=== PATIENT | male | born 1945 | race Caucasian/White ===

== ENCOUNTER 2019-10-27 07:23 | Emergency (ER) | payer MEDICARE, OTHER ==
--- NOTE | 2019-10-27 07:45 | Emergency Department Record ---
History of Present Illness - General Chief complaint: Male Urogenital Problem Stated complaint: TROUBLE URINATING Time Seen by Provider: 10/27/19 07:36 Source: Patient Mode of Arrival: Ambulatory Limitations: No limitations - History of Present Illness Initial comments: The patient is here due to a one week hx of mild dysuria and urinary urgency and frequency. The patient denies any AP, back pain, fever, blood in the urine, vomiting, diarrhea, or any new medicines. He has had similar issues in the past with prostate problems and is on Proscar. MD Complaint: Dysuria Onset/Timin -: Week(s) Improves with: None Worsens with: None - Related Data Home Medications Medication Instructions Recorded Confirmed Last Taken Finasteride [Proscar] 5 mg PO DAILY 10/27/19 10/27/19 Unknown Previous Rx's Medication Instructions Recorded Ciprofloxacin HCl [Cipro] 1 tab PO Q12H #14 tab 10/27/19 Allergies Allergy/AdvReac Type Severity Reaction Status Date / Time bactrim AdvReac Mild VOMITING Uncoded 10/27/19 07:36 Travel/Exposure Screening - Travel/Exposure Within Last 30 Days Have you traveled within the last 30 days?: No - Additonal Travel/Exposure Details Have you been exposed to anyone with a communicable illness?: No Review of Systems Constitutional: Denies: Chills, Fever Past Medical History - SOCIAL HISTORY Smoking Status: Former smoker Alcohol Use: None Drug Use: None - RESPIRATORY Hx Respiratory Disorders: No - CARDIOVASCULAR Hx Cardio Disorders: Yes Hx Hypertension: Yes - NEURO Hx Neuro Disorders: No - GI Hx GI Disorders: No - Hx Genitourinary Disorders: Yes Hx Prostate Problems: Yes - ENDOCRINE Hx Endocrine Disorders: Yes Hx Diabetes: Yes - MUSCULOSKELETAL Hx Musculoskeletal Disorders: No - PSYCH Hx Psych Problems: No - HEMATOLOGY/ONCOLOGY Hx Hematology/Oncology Disorders: No Family Medical History Any Significant Family History?: No Physical Exam - General General Appearance: Alert, Oriented x3, Cooperative, No acute distress - Head Head exam: Atraumatic, Normocephalic - Eye Eye exam: Normal appearance - Neck Neck exam: Normal inspection, Full ROM. negative: Tenderness - Respiratory Respiratory exam: Normal lung sounds bilaterally. negative: Respiratory distress - Cardiovascular Cardiovascular Exam: Regular rate, Normal rhythm, Normal heart sounds - GI/Abdominal GI/Abdominal exam: Soft, Normal bowel sounds. negative: Tenderness - Extremities Extremities exam: Normal inspection, Full ROM, Normal capillary refill. negative: Tenderness Course Vital Signs 10/27/19 07:32 Temperature 98.4 F Pulse Rate 73 Respiratory 20 Rate Blood Pressure 184/110 Pulse Ox 94 L - Reevaluation(s) Reevaluation #1: The patient is doing very well at this time. He is up walking with no pain or discomfort and his UA was neg. The patient's post void residual was <100 cc's of urine so I do not feel he is retaining urine. He is instructed to see his Urologist this week and to return to the ER for any worsening issues. 10/27/19 08:19 Medical Decision Making - Data Complexity MDM Data: Labs Ordered and/or Reviewed - Lab Data Result diagrams: 10/27/19 07:50 10/27/19 07:50 Disposition Disposition: Discharge Clinical Impression: Urinary urgency Disposition: Home, Self-Care Condition: (2) Stable Instructions: Dysuria (ED) Additional Instructions: Please continue your regular medicines and take the Cipro as directed. Please call your Urologist for an appointment this week. Return to the ER for any worsening issues, pain, fever, or vomiting. Prescriptions: Ciprofloxacin HCl [Cipro] 1 tab PO Q12H #14 tab Forms: Patient Portal Access Time of Disposition: 08:22 Quality - Quality Measures Quality Measures: N/A - Blood Pressure Screening View Details: Yes Does Patient Have Any of the Following: Active Dx of HTN Blood Pressure Classification: Hypertensive Reading Systolic Measurement: 163 Diastolic Measurement: 92 Screening for High Blood Pressure: Patient Exclusion, Hx of HTN [[id number]]
[2019-10-27 08:01] LABS: URINE APPEARANCE CLEAR; URINE BILIRUBIN NEGATIVE (NEGATIVE); URINE BLOOD NEGATIVE (NEGATIVE); URINE COLOR YELLOW; URINE GLUCOSE (UA) NEGATIVE (NEGATIVE); URINE KETONE NEGATIVE (NEGATIVE); URINE LEUKOCYTE ESTERASE NEGATIVE (NEGATIVE); URINE NITRITE NEGATIVE (NEGATIVE); URINE PROTEIN NEGATIVE (NEGATIVE); URINE UROBILINOGEN 0.2 E.U./dL (0.20 - 1.00)
[2019-10-27 08:03] LABS: ABSOLUTE NEUTROPHIL COUNT 3.73; BASO % 0.3 % (0-6); EOS % 1.7 % (0-6); GRAN % 57.5 % (47-80); HEMOGLOBIN 14.5 gm/dl (14.0-18.0); LYMPH % 30.9 % (16-45); MEAN CELL VOLUME 95.2 fl (81-97); MEAN CORPUSCULAR HEMOGLOBIN 31.4 pg (27-33); MEAN PLATELET VOLUME 11.1 fl (7.4-10.4); MONO % 9.6 % (0-9); PLATELET COUNT 150 K/uL (130-400); RED BLOOD COUNT 4.62 M/uL (4.40-5.70); WHITE BLOOD COUNT W/O DIFF 6.5 K/uL (4.2-12.2)
[2019-10-27 08:08] LABS: BLOOD UREA NITROGEN 15 mg/dL (8-23)
[2019-10-27 08:09] LABS: CREATININE 0.7 mg/dL (0.7-1.2); EST GLOMERULAR FILTRATION RATE > 60 mL/min
[2019-10-27 08:11] LABS: GLUCOSE,RANDOM 116 mg/dL (74-109)
== END 2019-10-27 08:27 | disposition home or self-care (01) ==
LOC: ER 07:23
DX: R39.15 Urgency of urination (principal); I10 Essential (primary) hypertension; E11.9 Type 2 diabetes mellitus without complications; Z79.84 Long term (current) use of oral hypoglycemic drugs; Z87.891 Personal history of nicotine dependence
CPT/HCPCS: 80048; 81003; 85025; 99283